=== PATIENT | female | born 1995 | race Caucasian/White ===

== ENCOUNTER 2018-04-23 21:54 | Emergency (ER) | payer OTHER ==
[2018-04-24] MEDS: KETOROLAC 30 MG/ML VIAL (J1885) IV (01:47)
[2018-04-24] MEDS: ACETAMINOPHEN 325 MG TAB PO (01:47)
[2018-04-24] MEDS: METOCLOPRAMIDE INJ 10MG/2ML VIAL (J2765) IV (01:47)
[2018-04-24] MEDS: NS 1,000 ML IV (01:48)
== END 2018-04-24 02:40 | disposition home or self-care (01) ==
LOC: M ED 21:54
DX: G43.909 Migraine, unspecified, not intractable, without status migrainosus (principal)
CPT/HCPCS: J1885